=== PATIENT | female | born 1985 ===

== ENCOUNTER 2018-06-22 06:35 | Day surgery (SDC) | payer OTHER ==
[~2018-06-22 06:35] MED LIST: FLONASE16 GM NS; NAPR500T14 PO; ZYRTEC10 M3 PO
== END 2018-06-22 12:15 | disposition home or self-care (01) ==
LOC: CIR.AMB 06:35
DX: O02.1 Missed abortion (principal); Z3A.01 Less than 8 weeks gestation of pregnancy

== ENCOUNTER 2025-05-16 09:28 | Inpatient (IN) | payer OTHER ==
[~2025-05-16] VITALS: Ht 170.2 cm; Wt 2.3 kg
[2025-05-16 09:16] VITALS: BP 111/96
[2025-05-16] MEDS ORDERED: RINGERS SOLUTION,LACTATED 1,000 ML IV SCH ×2 (09:45→17:15)
[2025-05-16] MEDS ORDERED: OXYTOCIN 500 ML IV ONE (09:45)
[2025-05-16] MEDS ORDERED: PRENATA CHEWAB1 EACH PO (10:07)
[2025-05-16 10:18] VITALS: BP 111/96
[2025-05-16 10:39] LABS: BASO % 0.3 % (0.1-1.2); EOS # 0.06 (0.04-0.54); EOS % 0.7 % (0.7-7.0); LYMPH # 1.57 (1.18-3.74); LYMPH % 18.2 % (19.3-53.1); MEAN PLATELET VOLUME 10.00 fl (9.4-12.4); MONO # 0.60 (0.24-0.82); MONO % 7.0 % (4.7-12.5); NEUT # 6.29 (1.56-6.13); NEUT % 73.0 % (34.0-71.1); RED CELL DISTRIBUTION WIDTH 13.7 % (11.6-14.4)
[2025-05-16 11:28] LABS: INR < 0.93
[2025-05-16 11:34] LABS: ALT/SGPT 19.0 U/L (12-78); AST/SGOT 18.0 U/L (15-37); BILIRUBIN TOTAL 0.23 mg/dL (0.3-1.2); BUN CREA RATIO 19.0 (7.0-25.0); CREATININE SERUM 0.63 mg/dL (0.55-1.02); GFR 105.2; GLOBULINA 3.6 G/DL (2.4-3.5); GLUCOSE FASTING 65.0 mg/dL (65-100); OSMOLALITY SERUM 283.0 MOSM/KG (275-295)
[2025-05-16 12:08] VITALS: BP 125/79
[2025-05-16] MEDS ORDERED: MORPHINE SULFATE 4 MG/ML VIAL IV PRN ×2 (12:15→17:15)
[2025-05-16] MEDS ORDERED: ONDANSETRON HCL 2 MG/ML VIAL IV ONE (12:45)
[2025-05-16] MEDS ORDERED: ERYTHROMYCIN BASE OPHT 1GM EACH TUBE OP ONE (12:48)
[2025-05-16] MEDS ORDERED: OXYTOCIN 10 UNITS/ML VIAL ONE (12:48)
[2025-05-16] MEDS ORDERED: CEFAZOLIN SODIUM 1,000 MG VIAL IV ONE (13:00)
[2025-05-16] MEDS ORDERED: OXYTOCIN 1,000 ML IV ONE (17:15)
[2025-05-16 19:17] VITALS: BP 125/66
[2025-05-17 00:08] VITALS: BP 111/72
[2025-05-17 08:00] VITALS: BP 112/71
[2025-05-17 11:19] LABS: BASO % 0.2 % (0.1-1.2); EOS # 0.09 (0.04-0.54); EOS % 0.8 % (0.7-7.0); LYMPH # 1.09 (1.18-3.74); LYMPH % 9.5 % (19.3-53.1); MEAN PLATELET VOLUME 9.60 fl (9.4-12.4); MONO # 0.41 (0.24-0.82); MONO % 3.6 % (4.7-12.5); NEUT # 9.74 (1.56-6.13); NEUT % 85.2 % (34.0-71.1); RED CELL DISTRIBUTION WIDTH 13.7 % (11.6-14.4)
[2025-05-17 18:12] VITALS: BP 113/73
[2025-05-18] VITALS: BP 123/79
[2025-05-18] MEDS ORDERED: OxyCODONE HCL 5 MG TABLET (ROXICODONE) PO PRN (06:00)
[2025-05-18 08:45] VITALS: BP 107/70
== END 2025-05-18 16:35 | disposition home or self-care (01) | DRG 788 ==
LOC: O/R 09:28 → LDR 09:28 → OB/GYN 09:28 → O/R 13:34 → OB/GYN 15:09
PROVIDERS: Obstetrics & Gynecology; ADMIT Obstetrics & Gynecology Gynecology; ATTEND Obstetrics & Gynecology Gynecology
PROC: 4A1HXCZ Monitoring of Products of Conception, Cardiac Rate, External Approach (ICD-10-PCS; 2025-05-16)
PROC: 10D00Z1 Extraction of Products of Conception, Low, Open Approach (ICD-10-PCS; principal; 2025-05-16 16:30)
DX: O36.8130 Decreased fetal movements, third trimester, not applicable or unspecified (principal); Z3A.37 37 weeks gestation of pregnancy; Z37.0 Single live birth